=== PATIENT | female | born 1975 | race Caucasian/White ===

== ENCOUNTER 2020-12-11 11:23 | Emergency (ER) | payer OTHER ==
[~2020-12-11] VITALS: Ht 167.6 cm; Wt 104.3 kg
[~2020-12-11 11:23] MED LIST: BENADRYL25 MG PO; MEDROLDOSEPACK PO; NORCO 5-325 TA1 EACH PO; PEPCID40 MG PO; SYNTHROID25 MCG; ZOFRAN4 MG PO
[2020-12-11] MEDS ORDERED: APAP W/CODEINE1 TA2 PO ×2 (12:20→12:44)
[2020-12-11 12:28] VITALS: BP 150/95
== END 2020-12-11 12:29 | disposition home or self-care (01) ==
LOC: M.ERS 11:23
DX: S93.602A Unspecified sprain of left foot, initial encounter (principal); S93.402A Sprain of unspecified ligament of left ankle, initial encounter; E03.9 Hypothyroidism, unspecified; L40.9 Psoriasis, unspecified; Z90.711 Acquired absence of uterus with remaining cervical stump; Z88.8 Allergy status to other drugs, medicaments and biological substances; Z88.5 Allergy status to narcotic agent; W10.8XXA Fall (on) (from) other stairs and steps, initial encounter; Y93.01 Activity, walking, marching and hiking; Y92.89 Other specified places as the place of occurrence of the external cause; Y99.8 Other external cause status